=== PATIENT | male | born 1965 | race Caucasian/White ===

== ENCOUNTER 2017-12-04 16:23 | Emergency (ER) | payer OTHER ==
[~2017-12-04] VITALS: Ht 182.8 cm; Wt 81.6 kg
[~2017-12-04 16:23] MED LIST: ASPIRIN325 M2; ASPIRIN81 M1 PO; ATIVAN0.5 MG PO; B-1100 MG PO; BACTRIM DS 8001 TA1 PO; BENADRYL ALLERG25 M5 PO; BENADRYL25 MG PO; CELEXA20 MG PO; CHLORDIAZEPOXID25 M1 PO; CYMBALTA30 MG PO; DOXYCYCLINE100 MG PO; GABAPENTIN TAB600 MG PO; GABAPENTIN600 MG PO; HYDROXYZINE HCL25 M1 PO; HYDROXYZINE HCL25 MG PO; IBU800 M1 PO; KEFLEX500 MG PO; MEDROL DOSEPAK4 MG PO; METOPROLOL SUCC25 M2 PO; METOPROLOL SUCC50 M2 PO; MOTRIN800 MG PO; MULTIPLE VITAMI1 TAB PO; Motrin,Rufen800 MG PO; NAPROSYN500 MG PO; NATURE'S BLEND F1 MG PO; NEURONTIN600 MG PO; NORCO 5-325 TA1 EACH PO; Nicotrol 10MG I1 BOX INH; OMEPRAZOLE D/R20 MG PO; PENICILLIN250 MG PO; PEPCID20 MG PO; PREDNISONE10 MG PO; PROTONIX20 MG PO; ROBAXIN500 MG PO; SEPTRA DS 800 M1 TAB PO; THERA TABS1 TAB PO; TRAZODONE100 MG PO; TRAZODONE50 MG PO; VITAMIN B-11 TAB PO
[2017-12-04 17:26] LABS: BASO # 0.1 10*3/uL (0.0-0.1); BASO % 1.1 % (0.0-1.0); EOS # 0.2 10*3/uL (0.0-0.4); EOS % 2.1 % (1.0-4.0); HEMATOCRIT 46.4 % (42.0-52.0); HEMOGLOBIN 14.9 g/dl (14.0-18.0); LYMPH # 1.9 10*3/uL (1.3-4.4); LYMPH % 19.3 % (27.0-41.0); MEAN CELL VOLUME 99.6 fl (80.0-94.0); MEAN CORPUSCULAR HGB CONC 32.1 g/dl (33.0-37.0); MEAN PLATELET VOLUME 9.6 fl (9.6-12.3); MONO # 0.9 10*3/uL (0.1-1.0); MONO % 9.7 % (3.0-9.0); NEUT # 6.5 10*3/uL (2.3-7.9); NEUT % 67.4 % (47.0-73.0); PLATELET COUNT AUTOMATED 199 10*3/uL (130-400); RED BLOOD COUNT 4.66 10*6/uL (4.50-5.90); RED CELL DISTRI WIDTH 15.9 % (0-14.5); WHITE BLOOD COUNT 9.7 10*3/uL (4.8-10.8)
[2017-12-04 17:36] LABS: ACT PARTIAL THROMBO TIME 23.7 SECONDS (20.8-31.5); INTERNATIONAL NORM RATIO 0.9 (2.0-3.5)
[2017-12-04 17:44] LABS: ALBUMIN 3.8 gm/dl (3.1-4.5); ALKALINE PHOSPHATASE 112 U/L (45-117); BUN 9 mg/dl (7-24); CHLORIDE 109 mmol/L (98-107); CREATININE 1.02 mg/dL (0.70-1.30); LIPASE 274 U/L (73-393); POTASSIUM 3.5 mmol/L (3.5-5.1); SGOT/AST 42 IU/L (3-35); SGPT/ALT 31 U/L (12-78); SODIUM 143 mmol/L (136-145); TOTAL PROTEIN 8.7 gm/dL (6.4-8.2)
[2017-12-04 17:47] LABS: TROPONIN I < 0.015 ng/ml (<0.045)
[2017-12-04 18:51] LABS: BILIRUBIN NEGATIVE (NEGATIVE); BLOOD NEGATIVE (NEGATIVE); CLARITY CLEAR (CLEAR); COLOR YELLOW (YELLOW); GLUCOSE NEGATIVE (NEGATIVE); KETONE NEGATIVE (NEGATIVE); LEUKO ESTERASE NEGATIVE (NEGATIVE); NITRITE NEGATIVE (NEGATIVE); SPECIFIC GRAVITY <= 1.005 (1.005-1.030); UROBILINOGEN 0.2 E.U./dl (0.2-1.0)
[2017-12-04 18:59] LABS: WBC 0-2 wbc/hpf (0-5)
[2017-12-04 19:24] LABS: URINE AMPHETAMINES < 1000 (1000ng/ml); URINE BARBITURATES < 200 (200ng/ml); URINE BENZODIAZEPINES < 200 (200ng/ml); URINE CANNABINOIDS (THC) < 50 (50ng/ml); URINE COCAINE < 300 (300ng/ml); URINE METHADONE < 300 (300ng/ml); URINE OPIATES < 300 (300ng/ml)
[2017-12-04 19:27] LABS: URINE PHENCYCLIDINE < 25 (25ng/ml)
== END 2017-12-04 19:36 | disposition home or self-care (01) ==
LOC: ED 16:23
PROVIDERS: Nurse Practitioner Family
DX: S80.212A Abrasion, left knee, initial encounter (principal); S80.211A Abrasion, right knee, initial encounter; R07.81 Pleurodynia; F10.129 Alcohol abuse with intoxication, unspecified; F17.200 Nicotine dependence, unspecified, uncomplicated; K21.9 Gastro-esophageal reflux disease without esophagitis; G89.29 Other chronic pain; I10 Essential (primary) hypertension; G62.9 Polyneuropathy, unspecified; R29.6 Repeated falls; Z79.899 Other long term (current) drug therapy; W10.9XXA Fall (on) (from) unspecified stairs and steps, initial encounter; Y93.01 Activity, walking, marching and hiking; Y92.89 Other specified places as the place of occurrence of the external cause; Y99.9 Unspecified external cause status; Y90.9 Presence of alcohol in blood, level not specified